=== PATIENT | female | born 1990 | race American Indian/Alaskan Native ===

== ENCOUNTER 2018-07-03 06:36 | Emergency (ER) | payer BC, MEDICAID ==
[2018-07-03] MEDS ORDERED: NACL 0.9% 1000 ML 1,000 ML IV ONE (07:47)
[2018-07-03] MEDS ORDERED: ZOFRAN IV ONE ×2 (07:47→09:59)
[2018-07-03] MEDS ORDERED: TYLENOL PO ONE (07:47)
--- NOTE | 2018-07-03 07:48 | Emergency Department Report ---
ED HPI - General Chief complaint: Abdominal Pain Stated complaint: PREG 5 WKS/VOMITING Time Seen by Provider: 07/03/18 07:47 Source: patient Mode of arrival: Ambulatory Limitations: No Limitations - History of Present Illness Initial comments: Patient is a 28-year-old -[place] female who comes to the ER today complaining of nausea and vomiting associated with . She had a ER visit in [place] that validated her . Her last menstrual cycle was 05/26/2018. This is her first . She is currently being treated for BV. She denies abdominal pain. She denies vaginal bleeding or discharge. She is more bothered by the persistent nausea and vomiting. She does not have an [employer] in the area. Patient and father have been educated on the effects of medications involving the fetus. - Related Data Previous Rx's Medication Instructions Recorded Last Taken Type Ondansetron [Zofran Odt] 4 mg PO Q8HR PRN #20 tab.rapdis 07/03/18 Unknown Rx Allergies Allergy/AdvReac Type Severity Reaction Status Date / Time No Known Allergies Allergy Unverified 07/03/18 06:46 ED Review of Systems ROS: Stated complaint: PREG 5 WKS/VOMITING Other details as noted in HPI Comment: All other systems reviewed and negative Constitutional: denies: see HPI Eyes: denies: eye pain ENT: denies: ear pain Respiratory: denies: see HPI Cardiovascular: denies: dyspnea on exertion Endocrine: denies: flushing Gastrointestinal: as per HPI, nausea, vomiting. denies: abdominal pain Genitourinary: as per HPI. denies: urgency, dysuria, frequency, hematuria, discharge, abnormal menses, dyspareunia Musculoskeletal: denies: back pain Skin: denies: rash Neurological: denies: headache Psychiatric: denies: depression Hematological/Lymphatic: denies: easy bleeding ED Past Medical Hx - Past Medical History Previous Medical History?: Yes Hx Asthma: Yes - Surgical History Past Surgical History?: No - Family History Family history: no significant - Social History Smoking Status: Former Smoker Substance Use Type: None - Medications Home Medications: Home Medications Medication Instructions Recorded Confirmed Last Taken Type Ondansetron [Zofran Odt] 4 mg PO Q8HR PRN #20 tab.rapdis 07/03/18 Unknown Rx ED Physical Exam - General Limitations: No Limitations General appearance: alert - Head Head exam: Present: atraumatic - Eye Eye exam: Present: normal appearance, PERRL - ENT ENT exam: Present: normal exam - Neck Neck exam: Present: normal inspection - Respiratory Respiratory exam: Present: normal lung sounds bilaterally - Cardiovascular Cardiovascular Exam: Present: regular rate - GI/Abdominal GI/Abdominal exam: Present: soft, normal bowel sounds - Rectal Rectal exam: Present: deferred - Extremities Exam Extremities exam: Present: normal inspection, full ROM - Back Exam Back exam: Present: normal inspection, full ROM - Neurological Exam Neurological exam: Present: alert, oriented X3, normal gait - Psychiatric Psychiatric exam: Present: normal affect, normal mood - Skin Skin exam: Present: warm, dry, intact ED Course Vital Signs 07/03/18 06:54 Temperature 98.3 F Pulse Rate 66 Respiratory 16 Rate Blood Pressure 108/71 ED Medical Decision Making - Medical Decision Making G1 N/V OF PREG NO VAG BLEED ABD PAIN ONLY WITH VOMITING CONFIRMED PREG IN ER OUT OF STATE TAKING FLAGYL FOR BV TAKING VIT HAS BEEN TO ER OUT OF STATE FOR N/V WELL 1L FLUIDS ZOFRAN IV NO ACTIVE N/V IN ER REEVAL 1000 TAKING PO RESTING WILL DC HOME WITH OBGYN FOLLOW UP PT AND SIGN OTHER EDUCATED ON VOMITING IN PREG Critical care attestation.: If time is entered above; I have spent that time in minutes in the direct care of this critically ill patient, excluding procedure time. ED Disposition Clinical Impression: , Vomiting affecting Disposition: DC-01 TO HOME OR SELFCARE Is pt being admited?: No Does the pt Need Aspirin: No Condition: Stable Instructions: Hyperemesis Gravidarum (ED) Additional Instructions: FOLLOW UP WITH OBGYN REFERRAL BELOW DIET TOLERATED MED ORDERED TODAY ACTIVITY TOLERATED TAKE YOU FLAGYL AND VITAMIN WITH FOOD THAT WILL DEC NAUSEA Prescriptions: Ondansetron [Zofran Odt] 4 mg PO Q8HR PRN #20 tab.rapdis PRN Reason: Vomiting Referrals: PRIMARY CARE, [Referring] - 3-5 Days CLIF GONSALVES MD [Staff Physician] - 3-5 Days Time of Disposition: 08:52
[2018-07-03 10:23] VITALS: BP 110/68
== END 2018-07-03 10:18 | disposition home or self-care (01) ==
LOC: ED 06:36
DX: O21.8 Other vomiting complicating pregnancy (principal); O99.511 Diseases of the respiratory system complicating pregnancy, first trimester; J45.909 Unspecified asthma, uncomplicated; Z87.891 Personal history of nicotine dependence; Z3A.01 Less than 8 weeks gestation of pregnancy
CPT/HCPCS: 96361; 96374; 96376; 99283; J2405; J7030; 96375